=== PATIENT | female | born 1975 | race Caucasian/White ===

== ENCOUNTER 2024-11-30 17:19 | Emergency (ER) | payer MEDICAID ==
[~2024-11-30] VITALS: Ht 154.9 cm; Wt 95.5 kg
[2024-11-30 17:33] VITALS: BP 146/93; PULSE 89; O2SAT 98
--- NOTE | 2024-11-30 17:45 | Physician Documentation ---
History of Present Illness Chief Complaint: Flank Pain Stated Complaint: KIDNEY PAIN HPI This 59-year-old female that reports to the emergency department for re- evaluation of the back pain possibly associated with a unresolved UTI. Patient reports that she has been treated back to back for UTIs taken 2 courses of antibiotics and she still has persistent back pain. Patient reports that she had an ultrasound today of her kidneys she is unaware with the results of the ultrasound were. Patient reports that there was no lab work done at the time of the ultrasound so she is reporting to the emergency department have some lab work done he has concerns for kidney infection or pyelonephritis. Denies fever chills nausea vomiting dysuria, blood urine or stool, diarrhea abdominal pain this time. Patient reports significant back pain bilaterally. Review of Systems ROS As stated above in the HPI, otherwise all systems are reviewed and negative. Physical Exam Vital Signs: Temperature: 98.2, Source: Oral, Heart Rate: 89, Respiratory Rate: 16, BP: 146/93, Pulse Oximetry: 98, Weight: 95.450 Oxygen Flow Rate: 0 Physical Exam VITALS: Reviewed and as above. GENERAL: Alert, no apparent distress. HEENT: Normocephalic, atraumatic, PERRL, EOMI, dry mucosa, no erythema RESPIRATORY: Lungs clear, normal breath sounds, no respiratory distress. CHEST: No accessory muscle use, no retractions CV: Regular rate, rhythm, no edema, no murmur, No: JVD GI: Soft, non-tender, bowels sounds present, no rebound, guarding, or rigidity BACK: Bilateral CVA tenderness noted on examination. MUSCULOSKELETAL No deformities, no edema SKIN: Warm and dry, no rash NEURO: Oriented x4, No motor or sensory deficit PSYCH: Normal mood and affect, no agitation Progress Results/Orders Results/Orders Vital Signs 11/30/24 17:33 Temp 98.2 Pulse 89 Resp 16 B/P (MAP) 146/93 Pulse Ox 98 O2 Flow Rate 0 Medical Decision Making Findings Patient presents with flank pain bilateral flanks x3 weeks. Patient has completed 2 rounds of antibiotics for UTIs. Laboratory diagnostics and UA are negative for UTI or infection at this time given there is no fever chills nausea vomiting or any other constitutional symptoms. Underwent a renal ultrasound at an outside facility today. Patient will call tomorrow to get the results of that scan and will correlate today's results with that scan at her primary care provider's office. Given history, exam, and work up I have low suspicion for atypical appendicitis, genital torsion, acute cholecystitis, AAA, infected obstructed stone, pyelonephritis, or other emergent intraabdominal pathology. Symptoms and UA indicate no infection. BMP witohut evidence of ROBBIN. Pain treated in ED with Toradol injection. Patient appropriate for discharge to home at this time. Patient will follow up with her primary care provider if her symptoms persist. He will return to the emergency department with any worsening or recurrent symptoms or any additional concerning symptoms that we discussed here today i.e. increased back pain fever nausea chills blood in her urine severe abdominal pain diarrhea persistent back pain that does not respond to Tylenol or ibuprofen or any other concerning symptoms. Please call and get your ultrasound imaging results patient today's laboratory diagnostics to discuss this case with your primary care provider. Discussed here today they you have a slight elevation in her white blood cell count but that could be inflammatory in nature as it is very slight patient fever chills nausea vomiting or diarrhea at this time. Please discuss these findings with your primary care provider and re-evaluate as needed. Ibuprofen as needed for discomfort. Please follow up with her primary care provider. Please return to the emergency department if you have any worsening or recurrent symptoms or any additional concerning symptoms that we discussed here today. Differential Dx:Considerations: Include: AAA, -Complete, - Incomplete, -Inevitable, -Missed, -Threatened, Abruptio placentae, Angina/NC, Aortic dissection, Appendicitis, Bowel obstruction, Cholangitis, Cholelithasis, Constipation, Diverticular disease, Esophageal rupture, Esophagitis, Gastritis/PUD, Gastroenteritis, GI hemorrhage, Hernia, Hepatitis, Inflammatory BD, Ischemic bowel, Ovarian cyst/torsion, Pancreatitis, PID, Porphyria, Trauma, intraabdominal, Urinary obstruction, Urinary tract infection, Urolithiasis, Other Departure Disposition: 01 HOME / SELF CARE / HOMELESS Impression: Primary Impression: Flank pain Additional Impression: Back pain Discharge Instructions: Flank Pain, Adult, [id number], Musculoskeletal Pain Additional Instructions: Patient presents with flank pain bilateral flanks x3 weeks. Patient has completed 2 rounds of antibiotics for UTIs. Laboratory diagnostics and UA are negative for UTI or infection at this time given there is no fever chills nausea vomiting or any other constitutional symptoms. Underwent a renal ultrasound at an outside facility today. Patient will call tomorrow to get the results of that scan and will correlate today's results with that scan at her primary care provider's office. Given history, exam, and work up I have low suspicion for atypical appendicitis, genital torsion, acute cholecystitis, AAA, infected obstructed stone, pyelonephritis, or other emergent intraabdominal pathology. Symptoms and UA indicate no infection. BMP witohut evidence of ROBBIN. Pain treated in ED with Toradol injection. Patient appropriate for discharge to home at this time. Patient will follow up with her primary care provider if her symptoms persist. He will return to the emergency department with any worsening or recurrent symptoms or any additional concerning symptoms that we discussed here today i.e. increased back pain fever nausea chills blood in her urine severe abdominal pain diarrhea persistent back pain that does not respond to Tylenol or ibuprofen or any other concerning symptoms. Please call and get your ultrasound imaging results patient today's laboratory diagnostics to discuss this case with your primary care provider. Discussed here today they you have a slight elevation in her white blood cell count but that could be inflammatory in nature as it is very slight patient fever chills nausea vomiting or diarrhea at this time. Please discuss these findings with your primary care provider and re-evaluate as needed. Ibuprofen as needed for discomfort. Please follow up with her primary care provider. Please return to the emergency department if you have any worsening or recurrent symptoms or any additional concerning symptoms that we discussed here today. Referrals: NO PRIMARY CARE PROVIDER (PCP) Education Educated: Patient Educated regarding: diagnosis, treatment, need for follow up Signature Scribe Signature: A Attestation: Scribed for Nolan Torres by FELECIA Almanza . 11/30/24 19:22 NOLAN TORRES Nov 30, 2024 17:45
[2024-11-30 18:13] LABS: LEUKOCYTE ESTERASE ,URINE NEGATIVE (Neg); NITRITES, URINE NEGATIVE (Neg); OCCULT BLOOD,URINE NEGATIVE (Neg)
[2024-11-30 18:18] LABS: UA COLLECTION TYPE CLN CATCH MIDSTREAM
[2024-11-30 18:25] LABS: MEAN PLATELET VOLUME 8.9 FL (7.4-10.4); RED CELL DISTRIBUTION WIDTH 13.4 % (11.5-14.5)
[2024-11-30 18:49] LABS: CREATININE 0.76 MG/DL (0.40-0.90); TOTAL CARBON DIOXIDE 28.1 MMOL/L (24-32); eCRCL 67 ML/MIN; eGFR 81 ML/MIN
[2024-11-30 19:09] VITALS: TEMP 98.2
[2024-11-30 19:29] VITALS: RESP 18
[2024-11-30] MEDS: ketorolac trometh 15mg/ml vial 15 MG/ML ML IM ONE (19:29)
== END 2024-11-30 19:32 | disposition home or self-care (01) ==
LOC: ER 17:20
DX: R10.A3 Flank pain, bilateral (principal); M54.89 Other dorsalgia
CPT/HCPCS: 36415; 80053; 81003; 85025; 96372; 99283; J1885

== ENCOUNTER 2024-12-22 09:50 | Emergency (ER) | payer OTHER, MEDICAID ==
[~2024-12-22] VITALS: Ht 154.9 cm; Wt 94.9 kg
[2024-12-22 10:12] VITALS: BP 116/76; PULSE 98; RESP 16; TEMP 97.9; O2SAT 98
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
[2024-12-22] MEDS ORDERED: NAPR-56 PO (12:36)
[2024-12-22] MEDS ORDERED: CYCL-1 PO (12:36)
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
== END 2024-12-22 13:01 | disposition home or self-care (01) ==
LOC: ER 09:53
DX: S20.211A Contusion of right front wall of thorax, initial encounter (principal); M25.511 Pain in right shoulder; G89.29 Other chronic pain; F17.200 Nicotine dependence, unspecified, uncomplicated; Z90.710 Acquired absence of both cervix and uterus; Z88.1 Allergy status to other antibiotic agents; Z79.899 Other long term (current) drug therapy; V49.9XXA Car occupant (driver) (passenger) injured in unspecified traffic accident, initial encounter; Y93.89 Activity, other specified; Y92.89 Other specified places as the place of occurrence of the external cause; Y99.8 Other external cause status
CPT/HCPCS: 71045; 72040; 99284

== ENCOUNTER 2025-01-28 13:29 | Emergency (ER) | payer MEDICAID ==
[~2025-01-28] VITALS: Ht 154.9 cm; Wt 92.2 kg
[~2025-01-28 13:29] MED LIST: CYCL-1 PO
--- NOTE | 2025-01-28 13:37 | ELECTROCARDIOGRAPH REPORT ---
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 Porfirio Mauro Measurements Intervals [place] Rate: 103 P: 52 [place]: 128 QRS: 61 QRSD: 85 T: 39 QT: 320 QTc: 419 Interpretive Statements Sinus tachycardia Low voltage, precordial leads Baseline wander in lead(s) II,III,aVR,aVF,V2,V6 Electronically Signed On 01-28-2025 18:29:[address] Porfirio Mauro Please click the below link to view image of tracing.
[2025-01-28 13:51] LABS: MEAN PLATELET VOLUME 9.5 FL (7.4-10.4); RED CELL DISTRIBUTION WIDTH 13.5 % (11.5-14.5)
--- NOTE | 2025-01-28 13:53 | RADIOLOGY REPORT ---
CHEST RADIOGRAPH Indication: CP Technique: Single frontal view of the chest was obtained Comparison: DI CHEST,SINGLE VIEW on DOS: 12/22/24 FINDINGS: Lines and Tubes: None Lungs: No focal consolidation. Pleura: No effusion. No pneumothorax. Cardiomediastinal contours: Unremarkable Bones: No acute osseous abnormality. IMPRESSION: No acute cardiopulmonary disease.
[2025-01-28 14:15] LABS: CREATININE 0.78 MG/DL (0.40-0.90); PRO BRAIN NATRIURETIC PEPTIDE 33 PG/ML (0-125); TOTAL CARBON DIOXIDE 29.5 MMOL/L (24-32); eCRCL 65 ML/MIN; eGFR 78 ML/MIN
--- NOTE | 2025-01-28 15:51 | Physician Documentation ---
History of Present Illness ~ Chief Complaint: Chest Pain Stated Complaint: CHEST PAIN Time Seen by MD: 14:38 Primary Medical Doctor: [facility] Mode of Arrival: Ambulatory HPI 49 year old female reports epigastric/sternal chest pain. Denies vomiting, fevers, cough, shortness of breath. Dull ache x 4 days. No URI symptoms, s/p hysterectomy, retains gallbladder and appendix. Medication Reconciliation Allergies: Coded Allergies: amoxicillin (Verified Allergy, Unknown, JOINT INFLAMMATION, 12/22/24) clavulanic acid (Verified Allergy, Unknown, JOINT INFLAMMATION, 12/22/24) Scheduled Cyclobenzaprine* (Cyclobenzaprine*), 1 TAB PO HS Discontinued Medications Naproxen (Naproxen), 1 TAB PO Q12H Discontinued Reason: Auto Discontinued Past Medical History Past Medical History: Chronic Back Pain Past Surgical History: hysterectomy Alcohol Use: None Drug Use: none Review of Systems All Other Systems at this time: Reviewed and Negative Physical Exam Vital Signs: RN Vital Signs have been reviewed: Yes, Temperature: 98.4, Source: Temporal, Heart Rate: 82, Respiratory Rate: 16, BP: 96/68, Pulse Oximetry: 97, Weight: 92.200 Oxygen Flow Rate: 0 Physical Exam Gen: unremarkable HEENT: PERRL, EOMI Pulm: no distress CTAB CV: RRR no m/c/r Abd: soft, NT, ND, mild TTP RUQ. MSK: no deformity Skin: w/d/i Neuro: nonfocal Psych: unremarkable Progress Results/Orders Results/Orders Orders - KAYLEEN KESSLER MD Chest,Single View (01/28/25 13:44) Monitor (01/28/25 13:32) Saline Lock (01/28/25 13:32) Oxygen (01/28/25 13:32) Ultrasound Of Abdomen (01/28/25 14:45) Completed Orders - KAYLEEN KESSLER MD Chest,Single View (01/28/25 13:44) Cbc/Diff (01/28/25 13:32) BMP (01/28/25 13:32) PBNP (01/28/25 13:32) Electrocardiogram (01/28/25 13:32) Hs Troponin I W Calculations (01/28/25 13:32) Hs Troponin I W Calculations (01/28/25 15:32) Ultrasound Of Abdomen (01/28/25 14:45) Vital Signs 01/28/25 01/28/25 01/28/25 01/28/25 13:31 14:34 15:10 15:40 Temp 98.4 98.4 Pulse 104 94 82 Resp 18 21 16 B/P (MAP) 136/88 96/68 (77) 96/68 (77) Pulse Ox 99 97 97 O2 Flow Rate 0 0 0 01/28/25 16:07 Temp 98.4 Pulse 97 Resp 17 B/P (MAP) 96/68 Pulse Ox 98 Laboratory Tests Test 01/28/25 13:39 01/28/25 15:45 White Blood Count 9.4 Red Blood Count 4.65 Hemoglobin 15.1 Hematocrit 43.7 Mean Corpuscular Volume 93.9 Mean Corpuscular Hemoglobin 32.5 H Mean Corpuscular Hemoglobin Concent 34.6 Red Cell Distribution Width 13.5 Platelet Count 287 Mean Platelet Volume 9.5 Neutrophils (%) (Auto) 59.7 Lymphocytes (%) (Auto) 28.9 Monocytes (%) (Auto) 6.8 Eosinophils (%) (Auto) 3.7 Basophils (%) (Auto) 0.9 Neutrophils # (Auto) 5.6 Lymphocytes # (Auto) 2.7 Monocytes # (Auto) 0.6 Eosinophils # (Auto) 0.4 Basophils # (Auto) 0.1 CBC Comment Sodium Level 140 Potassium Level 4.5 Chloride Level 105 Carbon Dioxide Level 29.5 Anion Gap 6 L Blood Urea Nitrogen 12 Creatinine 0.78 Estimated GFR/1.73 m2 78 BUN/Creatinine Ratio 15.4 Glucose Level 92 Calcium Level 8.8 Troponin I High Sensitivity 4 4 Pro-B-Type Natriuretic Peptide 33 Albumin 3.6 Chemistry Comments Troponin I High Sens Percent Delta 0 Troponin I Hi Sens Absolute Change 0 Medical Decision Making Additional information obtaine: N/A Findings 49 year old female as above. Exam and vitals unremarkable. Labs unremarkable. ACS/OH workup negative. US negative for gallbladder pathology. CXR interpreted by me demonstrating normal contours, no PNA or PTX. Counseled f/u pcp, return for new or worsening symptoms. Heart Score: 1 Differential Dx:Considerations: Include: angina, chest wall pain, cholelithiasis, myocardial infarction, pericarditis, pancreatitis, pneumonia, pneumothorax Additional Information Ddx includes dyspepsia, PUD, pancreatitis, gallbladder pathology Departure Disposition: HOME / SELF CARE / HOMELESS Impression: Primary Impression: Chest pain Condition: Stable Discharge Instructions: Nonspecific Chest Pain, Adult Referrals: NO PRIMARY CARE PROVIDER (PCP) Education Educated: Patient Educated regarding: diagnosis, treatment, prognosis, need for follow up Signature Scribe Signature: . Attestation: . KAYLEEN KESSLER MD Jan 28, 2025 15:51
[2025-01-28 16:07] VITALS: BP 96/68; PULSE 97; RESP 17; TEMP 98.4; O2SAT 98
--- NOTE | 2025-01-28 16:20 | RADIOLOGY REPORT ---
US limited, RUQ Indication: epigastric pain Comparison: None Technique: Limited ultrasound of the abdomen was performed and reviewed. Findings: The pancreas is partially obscured by bowel gas. Unremarkable homogeneous liver echogenicity. Questionable small echogenic foci within the gallbladder may represent gallstones versus polyps. No significant gallbladder wall thickening. Negative sonographic Otero's sign. The common bile duct measures 5 mm. The right kidney is 11.6 cm. No evidence for hydronephrosis. IMPRESSION: Limited evaluation of the gallbladder due to underdistention. Questionable echogenic foci within the gallbladder may represent small gallstones versus polyps. Consider follow-up ultrasound in 6-12 months.
== END 2025-01-28 16:09 | disposition home or self-care (01) ==
LOC: ER 13:30
DX: R07.9 Chest pain, unspecified (principal); G89.29 Other chronic pain; Z90.710 Acquired absence of both cervix and uterus; Z88.1 Allergy status to other antibiotic agents; Z79.899 Other long term (current) drug therapy
CPT/HCPCS: 36415; 71045; 76700; 80048; 83880; 84484; 85025; 93005; 99285

== ENCOUNTER 2025-01-30 17:52 | Emergency (ER) | payer MEDICAID ==
[~2025-01-30] VITALS: Ht 154.9 cm; Wt 95.0 kg
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
--- NOTE | 2025-01-30 18:30 | ELECTROCARDIOGRAPH REPORT ---
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 GILLES Smith Measurements Intervals Adel Rate: 92 P: 57 OK: 148 QRS: 37 QRSD: 88 T: 55 QT: 341 QTc: 422 Interpretive Statements Sinus rhythm Low voltage, precordial leads Electronically Signed On 01-31-2025 17:08:[address] GILLES Smith Please click the below link to view image of tracing.
[2025-01-30 18:37] LABS: MEAN PLATELET VOLUME 9.6 FL (7.4-10.4); RED CELL DISTRIBUTION WIDTH 13.8 % (11.5-14.5)
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
[2025-01-30 18:50] LABS: INR 1.0 INR
[2025-01-30 19:05] VITALS: BP 130/100; PULSE 93; RESP 12; O2SAT 99
[2025-01-30 19:25] LABS: CREATINE KINASE MB 0.6 ng/ml (0.3-3.6); CREATININE 0.74 MG/DL (0.40-0.90); TOTAL CARBON DIOXIDE 29.5 MMOL/L (24-32); eCRCL 69 ML/MIN; eGFR 83 ML/MIN
[2025-01-30 19:28] LABS: ETHANOL < 10 MG/DL (<10)
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
[2025-01-30] MEDS ORDERED: HYDR-3973 PO ×2 (19:44→19:52)
[2025-01-30] MEDS ORDERED: ACET-3174 PO (19:44)
[2025-01-30] MEDS ORDERED: METH-798 PO (19:44)
[2025-01-30] MEDS ORDERED: IBUP-1986 PO (19:44)
== END 2025-01-30 20:19 | disposition home or self-care (01) ==
LOC: ER 17:52
DX: M54.2 Cervicalgia (principal); M25.551 Pain in right hip; M54.50 Low back pain, unspecified; R07.89 Other chest pain; G89.29 Other chronic pain; Z90.710 Acquired absence of both cervix and uterus; Z88.1 Allergy status to other antibiotic agents; Z79.899 Other long term (current) drug therapy; V89.2XXA Person injured in unspecified motor-vehicle accident, traffic, initial encounter; Y93.89 Activity, other specified; Y92.89 Other specified places as the place of occurrence of the external cause; Y99.8 Other external cause status
CPT/HCPCS: 36415; 72125; 72128; 72131; 72170; 80048; 80320; 82553; 83690; 84484; 85025; 85610; 93005; 99285